=== PATIENT | male | born 1995 | race Caucasian/White ===

== ENCOUNTER → 2017-07-23 | Emergency (ER) | payer SELFPAY ==
[~2017-07-23] VITALS: Ht 193 cm; Wt 127.0 kg
[~2017-07-23] MED LIST: CLARITIN10 MG PO; KEFLEX500 MG PO; MOTRIN800 MG PO; NKHM; VIBRAMYCIN100 MG PO; ZANTAC150 MG PO
== END ==
LOC: ED 18:18
DX: Z00.8 Encounter for other general examination (principal)

== ENCOUNTER 2017-08-02 18:08 | Emergency (ER) | payer OTHER ==
[~2017-08-02] VITALS: Ht 193 cm; Wt 127.0 kg
== END 2017-08-02 19:53 | disposition home or self-care (01) ==
LOC: ED 18:08
DX: S96.811A Strain of other specified muscles and tendons at ankle and foot level, right foot, initial encounter (principal); X50.1XXA Overexertion from prolonged static or awkward postures, initial encounter; Y93.89 Activity, other specified; Y92.69 Other specified industrial and construction area as the place of occurrence of the external cause; Y99.9 Unspecified external cause status

== ENCOUNTER → 2020-03-09 | Outpatient (CLI) | payer OTHER ==
[2020-03-09 15:52] LABS: HEMATOCRIT 45.5 % (42.0-52.0); MEAN CELL VOLUME 91.5 fl (80.0-94.0); MEAN CORPUSCULAR HGB CONC 33.8 g/dl (33.0-37.0); MEAN PLATELET VOLUME 11.1 fl (9.6-12.3); RED BLOOD COUNT 4.97 10*6/uL (4.50-5.90); RED CELL DISTRI WIDTH 12.7 % (0-14.5); WHITE BLOOD COUNT 9.3 10*3/uL (4.8-10.8)
[2020-03-09 16:04] LABS: CHOLESTEROL 72 mg/dL (<200); TRIGLYCERIDES 417 mg/dl (<150)
[2020-03-09 16:30] LABS: ALBUMIN 3.9 gm/dl (3.1-4.5); ALKALINE PHOSPHATASE 65 U/L (45-117); BUN 14 mg/dl (7-24); CHLORIDE 106 mmol/L (98-107); CREATININE 1.06 mg/dL (0.70-1.30); SGOT/AST 38 IU/L (3-35); SGPT/ALT 62 U/L (12-78); SODIUM 140 mmol/L (136-145); TOTAL PROTEIN 7.7 gm/dL (6.4-8.2)
[2020-03-09 16:46] LABS: HDL CHOLESTEROL 41 mg/dl (40-60)
== END | disposition home or self-care (01) ==
LOC: LAB 15:36
PROVIDERS: ATTEND Family Medicine
DX: I10 Essential (primary) hypertension (principal); E78.00 Pure hypercholesterolemia, unspecified; R73.9 Hyperglycemia, unspecified

== ENCOUNTER → 2020-06-07 | Outpatient (CLI) | payer OTHER | END | disposition home or self-care (01) | LOC: RAD 18:46 | PROVIDERS: ATTEND Nurse Practitioner Family | DX: M25.561 Pain in right knee (principal); M25.571 Pain in right ankle and joints of right foot; M25.562 Pain in left knee ==

== ENCOUNTER → 2020-06-21 | Outpatient (CLI) | payer OTHER | END | disposition home or self-care (01) | LOC: MRI 14:00 | PROVIDERS: ATTEND Orthopaedic Surgery | DX: S83.252A Bucket-handle tear of lateral meniscus, current injury, left knee, initial encounter (principal); M25.462 Effusion, left knee; X58.XXXA Exposure to other specified factors, initial encounter; Y93.89 Activity, other specified; Y92.89 Other specified places as the place of occurrence of the external cause; Y99.8 Other external cause status ==

== ENCOUNTER → 2020-08-12 | Outpatient (CLI) | payer OTHER ==
[~2020-08-12] MED LIST changes: +HYDROCODONE-AC1 EAC1 PO
== END | disposition home or self-care (01) ==
LOC: COVID19 12:29
PROVIDERS: ATTEND Orthopaedic Surgery
DX: Z01.812 Encounter for preprocedural laboratory examination (principal); Z20.822 Contact with and (suspected) exposure to COVID-19

== ENCOUNTER → 2020-08-17 | Day surgery (SDC) | payer OTHER ==
[2020-08-13 13:47] VITALS: BP 157/97
[~2020-08-17] VITALS: Ht 193 cm; Wt 144.7 kg
[2020-08-17 08:30] VITALS: BP 151/84
[2020-08-17 11:30] VITALS: BP 137/95
[2020-08-17 11:45] VITALS: BP 151/109
[2020-08-17 12:00] VITALS: BP 159/102
[2020-08-17 12:15] VITALS: BP 150/97
[2020-08-17 12:30] VITALS: BP 141/79
== END ==
LOC: SDC 06-30 14:00
PROVIDERS: ATTEND Orthopaedic Surgery
DX: S83.252A Bucket-handle tear of lateral meniscus, current injury, left knee, initial encounter (principal); K58.9 Irritable bowel syndrome, unspecified; J45.909 Unspecified asthma, uncomplicated; X58.XXXA Exposure to other specified factors, initial encounter; Y93.89 Activity, other specified; Y92.89 Other specified places as the place of occurrence of the external cause; Y99.8 Other external cause status

== ENCOUNTER 2024-10-16 14:43 | Emergency (ER) | payer OTHER ==
[2024-10-16] MEDS ORDERED: methylPREDNISolone sod succ 125 MG VIAL IV ONE (15:10)
[2024-10-16] MEDS ORDERED: SODIUM CHLORIDE 0.9% 1,000 ML IV ONE (15:10)
[2024-10-16] MEDS ORDERED: Ketorolac Tromethamine 15 MG/ML VIAL IV ONE (15:10)
[2024-10-16 15:28] LABS: BASO % 0.3 % (0.0-1.0); EOS # 0.1 10*3/uL (0.0-0.4); EOS % 0.7 % (1.0-4.0); HEMATOCRIT 43.9 % (42.0-52.0); MEAN CORPUSCULAR HGB 31.7 pg (27.0-31.0); MEAN CORPUSCULAR HGB CONC 33.7 g/dl (33.0-37.0); MEAN PLATELET VOLUME 10.7 fl (9.6-12.3); MONO # 0.9 10*3/uL (0.1-1.0); MONO % 10.1 % (3.0-9.0); NEUT # 5.7 10*3/uL (2.3-7.9); NEUT % 65.3 % (47.0-73.0); PLATELET COUNT AUTOMATED 198 10*3/uL (130-400); RED BLOOD COUNT 4.67 10*6/uL (4.50-5.90); WHITE BLOOD COUNT 8.7 10*3/uL (4.8-10.8)
[2024-10-16 15:47] LABS: BUN 13 mg/dl (9-23); CHLORIDE 105 mmol/L (98-107); POTASSIUM 4.2 mmol/L (3.4-5.1); URIC ACID 6.1 mg/dL (3.7-9.2)
[2024-10-16] MEDS ORDERED: PREDNISONE20 M1 PO (16:02)
[2024-10-16] MEDS ORDERED: MELOXICAM15 MG PO (16:02)
[2024-10-16] MEDS ORDERED: TRIAMCINOLONE430 GM TD (16:02)
== END 2024-10-16 16:17 | disposition home or self-care (01) ==
LOC: ED 14:43
PROVIDERS: Emergency Medicine
DX: M25.571 Pain in right ankle and joints of right foot (principal); R21 Rash and other nonspecific skin eruption

== ENCOUNTER → 2025-04-14 | Outpatient (CLI) | payer OTHER ==
[~2025-04-14] MED LIST changes: +MELOXICAM15 MG PO; +PREDNISONE20 M1 PO; +TRIAMCINOLONE430 GM TD
[2025-04-14 12:33] LABS: BASO # 0.0 10*3/uL (0.0-0.1); BASO % 0.6 % (0.0-1.0); EOS # 0.1 10*3/uL (0.0-0.4); EOS % 1.3 % (1.0-4.0); MEAN CELL VOLUME 94.1 fl (80.0-94.0); MEAN CORPUSCULAR HGB 32.2 pg (27.0-31.0); MEAN PLATELET VOLUME 11.6 fl (9.6-12.3); MONO # 0.5 10*3/uL (0.1-1.0); MONO % 7.3 % (3.0-9.0); NEUT # 4.0 10*3/uL (2.3-7.9); NEUT % 56.2 % (47.0-73.0); NUCLEATED RED BLOOD CELL 0.0 % (0.0-0.0); NUCLEATED RED BLOOD CELL 0.0 10*3/uL (0.0-0.0); PLATELET COUNT AUTOMATED 146 10*3/uL (130-400); RED CELL DISTRI WIDTH 13.0 % (0-14.5)
[2025-04-14 13:12] LABS: BUN 13 mg/dl (9-23); SGPT/ALT 62 U/L (5-49)
[2025-04-17 00:06] LABS: LUPUS DRVVT 43.9 sec (0.0-47.0); PTT-LA 39.6 sec (0.0-43.5)
[2025-04-17 01:06] LABS: LUPUS REFLEX INTERPRETATION Comment: (.)
== END | disposition home or self-care (01) ==
LOC: LAB 11:59
PROVIDERS: ATTEND Orthopaedic Surgery
DX: M25.579 Pain in unspecified ankle and joints of unspecified foot (principal)

== ENCOUNTER → 2025-05-07 | Outpatient (CLI) | payer OTHER ==
[2025-05-07 13:38] LABS: BASO # 0.0 10*3/uL (0.0-0.1); BASO % 0.4 % (0.0-1.0); EOS # 0.1 10*3/uL (0.0-0.4); EOS % 0.5 % (1.0-4.0); MEAN CELL VOLUME 96.0 fl (80.0-94.0); MEAN CORPUSCULAR HGB 32.6 pg (27.0-31.0); MEAN PLATELET VOLUME 10.8 fl (9.6-12.3); MONO # 0.9 10*3/uL (0.1-1.0); MONO % 7.9 % (3.0-9.0); NEUT # 8.0 10*3/uL (2.3-7.9); NEUT % 72.1 % (47.0-73.0); NUCLEATED RED BLOOD CELL 0.0 % (0.0-0.0); NUCLEATED RED BLOOD CELL 0.0 10*3/uL (0.0-0.0); PLATELET COUNT AUTOMATED 171 10*3/uL (130-400); RED CELL DISTRI WIDTH 12.4 % (0-14.5)
== END | disposition home or self-care (01) ==
LOC: LAB 13:25
PROVIDERS: ATTEND Orthopaedic Surgery
DX: M25.569 Pain in unspecified knee (principal)